=== PATIENT | female | born 1950 | race Caucasian/White ===

== ENCOUNTER 2022-01-18 14:25 | Outpatient (CLI) | payer MEDICARE, SELFPAY | END 2022-01-18 14:26 | disposition home or self-care (01) | LOC: LKVREF 01-21 14:12 | PROVIDERS: PCP Emergency Medicine; Visit Provider Emergency Medicine | DX: Z00.00 Encounter for general adult medical examination without abnormal findings (principal); E03.9 Hypothyroidism, unspecified; R03.0 Elevated blood-pressure reading, without diagnosis of hypertension; R73.03 Prediabetes; E11.9 Type 2 diabetes mellitus without complications; E87.6 Hypokalemia | CPT/HCPCS: 80048; 84443 ==

== ENCOUNTER 2022-05-19 12:06 | Emergency (ER) | payer MEDICARE, SELFPAY ==
[2022-05-19 12:19] VITALS: BP 149/71; PULSE 88; TEMP 36.4; O2SAT 98; BMI 28.3
--- NOTE | 2022-05-19 12:55 | ED_ITS ---
HPI - Back Pain/Injury General Chief Complaint: Back Injury/Pain Stated Complaint: Low back pain Time Seen by Provider: 05/19/22 12:27 History of Present Illness HPI Narrative: This 71-year-old female comes in reporting low back pain radiating down both legs, right greater than left. She does not report any specific injury event but states that she has had some discomfort over the past week or so and today things became much more pronounced. 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 Related Data Home Medications Medication Instructions Recorded Confirmed Filiberto seed PO 01/15/22 Diabetic Test Strips 01/15/22 01/15/22 diabetic supplies, miscellan. 01/15/22 01/15/22 lipase 9,000 unit-protease 112,500 1 cap PO DAILY 01/15/22 01/15/22 unit-amylase 112,500 unit capsule Previous Rx's Medication Instructions Recorded levothyroxine 100 mcg tablet 100 mcg PO QDAY #90 tabs 03/05/22 cyclobenzaprine 10 mg tablet 10 mg PO TID #15 tabs 05/19/22 methylprednisolone 4 mg tablets in See Rx Instructions PO .COMPLEX 05/19/22 a dose pack (Medrol (David)) #21 ea Allergies Allergy/AdvReac Type Severity Reaction Status Date / Time metronidazole [From Flagyl] Allergy Unknown Verified 01/15/22 12:49 Review of Systems Status of ROS: Reports: 10 or more systems reviewed and unremarkable except as noted in History and below Narrative: Constitutional: No fevers, no weight gain or loss. Eyes: No discharge. No vision changes. HENT: No congestion, no sore throat, no ear pain. Cardiovascular: No chest pain, no palpitations. Respiratory: No shortness of breath, no wheezes, no cough. Gastrointestinal: No abdominal pain, no vomiting, no diarrhea. Genitourinary: No dysuria, no hematuria. Musculoskeletal: Normal range of motion. Low back pain radiating down both legs, right greater than left. Skin: No rashes, no pruritis. Neurological: No dizziness, weakness, sensory change, speech change. Endo/Heme/Allergies: No bruising or bleeding. No polydipsia. Pysch: no suicidality, no anxiety, no insomnia. All other systems reviewed and are negative. [facility] Medical History (Updated 05/19/22 @ 12:59 by Chavez Hickey MD) Elevated blood pressure reading ?R03.0 - Elevated blood-pressure reading, without diagnosis of hypertension (ICD-10) History of bone density study ?Z92.89 - Personal history of other medical treatment (ICD-10) Hypothyroidism ?E03.9 - Hypothyroidism, unspecified (ICD-10) Pre-diabetes ?R73.03 - Prediabetes (ICD-10) Vaccine counseling ?Z71.85 - Encounter for immunization safety counseling (ICD-10) Surgical History (Updated 01/15/22 @ 13:02 by Marisol Sotelo MD) History of breast biopsy (09/01/09) ?Z98.890 - Other specified postprocedural states (ICD-10) History of carpal tunnel surgery ?Z98.890 - Other specified postprocedural states (ICD-10) History of laparoscopy (06/07/08) ?Z98.890 - Other specified postprocedural states (ICD-10) Family History (Updated 01/14/22 @ 09:32 by Nancy De La O ~ PSR) Mother Coronary artery disease Social History Smoking Status: Never smoker How often do you have a drink containing alcohol: 2-3 times a week How often do you have six or more drinks on one occasion: Never AUDIT-C Alcohol total score: 3 Non-prescribed substance use: denies use Little interest or pleasure in doing things: several days Feeling down, depressed, or hopeless: not at all Exam Narrative: Exam Narrative: Constitutional: Well-developed, well-nourished, no acute distress. HEENT: Normocephalic, atraumatic. Neck: Normal range of motion. Nontender. Supple. Heart: Regular. No murmurs. Normal rate. Intact distal pulses. Lungs: Clear to auscultation. No chest discomfort. No wheezes, rhonchi, or rales. Abdomen: Normal bowel sounds. Nontender. No rebound tenderness. Genitalia: Deferred. Back: No midline tenderness. Low back pain along the right of midline with pain radiating down both legs, right greater than left. Extremities: Normal range of motion. No injury. Skin: Intact. No rash. Warm. No erythema or pallor. Neurologic: No altered sensation. No weakness. Alert and oriented. Straight leg raise of the left leg is positive eliciting pain in the right lower back. I did not assess the right leg. Psychiatric: No suicidality. No anxiety or depression. No insomnia. Nursing notes and vitals signs are reviewed. Const: Vital Signs, click to edit/add: Vital Signs - 24 hr 05/19/22 12:19 Temperature 97.6 F Pulse Rate [Pulse Oximeter] 88 Blood Pressure [Le ft Upper Arm] 149/71 H Pulse Oximetry 98 Oxygen Delivery Me thod Room Air Course Vital Signs Vital signs: Initial Vital Signs Temperature 97.6 F 05/19/22 12:19 Temperature Source Temporal Artery Scan 05/19/22 12:19 Pulse Rate 88 05/19/22 12:19 Blood Pressure 149/71 H 05/19/22 12:19 Blood Pressure Mean 97 05/19/22 12:19 Blood Pressure Position Standing 05/19/22 12:19 Pulse Oximetry 98 05/19/22 12:19 Oxygen Delivery Method Room Air 05/19/22 12:19 Vital Signs Temperature 97.6 F 05/19/22 12:19 Pulse Rate 88 05/19/22 12:19 Blood Pressure 149/71 H 05/19/22 12:19 Pulse Oximetry 98 05/19/22 12:19 Oxygen Delivery Method Room Air 05/19/22 12:19 Temperature 97.6 F 05/19/22 12:19 Pulse Rate 88 05/19/22 12:19 Blood Pressure 149/71 H 05/19/22 12:19 Pulse Oximetry 98 05/19/22 12:19 Oxygen Delivery Method Room Air 05/19/22 12:19 MDM - Back Pain/Injury MDM Narrative Medical decision making narrative: This patient has symptoms typical of a lumbar radiculopathy. There was no specific injury event that mandates imaging at this time. If not improve she may need an MRI. She prefers to take Tylenol and ibuprofen for pain relief but agreed to get a prescription of Flexeril and Medrol Dosepak. I did also recommend that she follow up with our spine clinic or return if worsening symptoms happen. Discharge Plan Discharge Clinical Impression: Lumbar radiculopathy Patient Disposition: Home, Self-Care Condition: Unchanged Additional Instructions: Take medications as needed and indicated. Activity as tolerated. Follow up with Spine Clinic by calling [phone] for appointment. Return if worsening. Prescriptions: New cyclobenzaprine 10 mg tablet 10 mg PO TID Qty: 15 0RF methylprednisolone [Medrol (David)] 4 mg tablets,dose pack See Rx Instructions .ROUTE .COMPLEX Qty: 21 0RF Rx Instructions: orally per package directions No Action Filiberto seed PO Rx Instructions: 1 tablespoon kfkywa-jtdyjkje-cdxeeev 9,000-112,500- 112,500 unit capsule 1 cap PO DAILY (DME) Diabetic Test Strips Misc See Rx Instructions .ROUTE Rx Instructions: As directed (DME) diabetic supplies, miscellan. Misc See Rx Instructions .ROUTE Rx Instructions: As directed levothyroxine 100 mcg tablet 100 mcg PO QDAY Qty: 90 2RF Follow Up/Referrals: Marisol Sotelo MD [Primary Care Provider] - Stand Alone [facility]
[2022-05-19 13:17] VITALS: BP 132/81; PULSE 76; O2SAT 97
== END 2022-05-19 13:18 | disposition home or self-care (01) ==
PROVIDERS: Emergency Provider Emergency Medicine Emergency Medical Services; PCP Emergency Medicine
DX: M54.16 Radiculopathy, lumbar region (principal)
CPT/HCPCS: 99283; 99284

== ENCOUNTER 2023-02-10 11:44 | Outpatient (CLI) | payer MEDICARE, SELFPAY ==
--- NOTE | 2023-02-10 13:07 | P.ANES_ITS ---
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
== END 2023-02-10 11:45 | disposition home or self-care (01) ==
PROVIDERS: PCP Emergency Medicine; Visit Provider Internal Medicine
DX: Z86.010 Personal history of colon polyps (principal); K57.30 Diverticulosis of large intestine without perforation or abscess without bleeding
CPT/HCPCS: 00812; 45378; 99100; J2704

== ENCOUNTER 2023-06-13 10:45 | Outpatient (RCR) | payer MEDICARE, SELFPAY ==
--- NOTE | 2023-05-19 13:43 | PT.OPE ---
PT [place] Out[facility] Eval PT [facility] Outpatient Eval Start: 05/15/23 15:15 Freq: Status: Active Protocol: Document 05/15/23 15:15 SIMONE (Rec: 05/15/23 15:18 SIMONE [email or web address]) E-signed By Martin Billingsley DPT, MS Physical Therapy Outpatient Evaluation Insurance Information Recert Due Date 08/13/23 Insurance Name Medicare B,Blue Cross/Blue Shield Medical Diagnosis Dorsalgia, unspecified; sacrococcygeal disorders, not elsewhere classified. Treating Diagnosis Chronic B LS and coccyx pain, decreased B (R>L) LE and LS flexibility, gait dysfunction, imbalance, and B LE and core weakness Subjective Subjective Patient is 72 y.o. female who presents to PT with c/o chronic B (R>L) LS and coccyx pain since falling on ice onto her buttocks in April 2022 while filling birdfeeders. Describes soreness immediately following her fall but sxs increased overnight. Increased tightness and soreness this winter with decreased activity levels but pain levels have improved over the past few weeks with increased walking. Denies B radicular sxs with no previous hx of LS pain prior to her fall. Hopes to decrease pain levels to continue performing all daily activities and gardening in the spring. PMH includes DM-II . AGGR factor: lifting and carrying objects, driving, extended sitting, extended walking. ALLEV factors: rest, heating pad, movement, walking <2-3 min. Pain Comments 0-5/10 Current Work Status Retired Precautions Therapy Limitations/Systems Review Not Limited Objective Functional Test Performed & Score Modified OSWESTRY: 50% Assessment Assessment/Impression Objectively pt displays decreased B (R>L) LE and LS flexibility, gait dysfunction, deconditioning, imbalance, and B (L>R) LE and core weakness. Negative B slump testing. Significant R piriformis, glute and LS tightness with significant improvement following stretching and recumbent biking. Sacral mobility improved following joint mobs and MT. She responded well to trial of recumbent biking, MT, stretching and strengthening exercises with decreased LS and coccyx pain and improved quality of gait following. She will benefit from continued skilled PT intervention to address these limitations. Primary Functional Limitations Lifting and carrying objects, driving, extended sitting, extended walking Plan of Care Rehabilitation Potential Excellent Physical Therapy Goals Short-term goals to be completed in 4 weeks: 1. Pt will be able to sit for >15 min with LSand coccyx pain </= 2/10 to improve alejandro to driving. 2. Pt will be able to stand for >10 min with LS pain <3/10 to improve alejandro to grocery shopping. Long-term goals to be completed in 10 weeks: 1. 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 2. Pt will display >25% improvement in B LS rot AROM to safely back up his car. 3. Pt will display improved abdominal, B hip flex , ABD and ext strength >4/5 to improve tolerance to walking, yardwork and household cleaning activities. 4. Pt will report >50% improvement in modified OSWESTRY questionnaire to significantly improve alejandro to daily activities. Coordination/Communication With Referral Source Treatment Plan/Direct Interventions Joint Mobilization,Manual Therapy,Therapeutic Exercises Frequency/Duration 1x per week for least 6-10 visits, decreasing visit frequency as able. Patient Will Be Discharged From Therapy Completion of LTG(s),Skills Plateau,Independent w/HEP, Independently Progressing Evaluation Billing Untimed Code Treatment Minutes 25 Complexity Moderate Certification Information Initial Certification Date 05/15/23 Ending Certification Date 08/13/23 Provider Signature Shows Agreement With POC & Medical Necessity Physician Signature & Date Requested Please Sign/Date Here Physician Comment/Change : Physician NPI Number #
== END 2023-10-11 23:59 | disposition home or self-care (01) ==
PROVIDERS: PCP Emergency Medicine; Visit Provider Emergency Medicine
DX: M53.3 Sacrococcygeal disorders, not elsewhere classified (principal); M54.9 Dorsalgia, unspecified; R42 Dizziness and giddiness; R29.898 Other symptoms and signs involving the musculoskeletal system; R26.89 Other abnormalities of gait and mobility; Z51.89 Encounter for other specified aftercare
CPT/HCPCS: 97110; 97140; 97162

== ENCOUNTER 2023-09-16 09:57 | Outpatient (CLI) | payer MEDICARE, SELFPAY | END 2023-09-16 09:58 | disposition home or self-care (01) | PROVIDERS: PCP Emergency Medicine; Visit Provider Family Medicine | DX: E03.9 Hypothyroidism, unspecified (principal); R03.0 Elevated blood-pressure reading, without diagnosis of hypertension | CPT/HCPCS: 80048; 84443 ==

== ENCOUNTER 2023-09-30 12:24 | Outpatient (CLI) | payer MEDICARE, SELFPAY | END 2023-09-30 12:25 | disposition home or self-care (01) | LOC: LKVREF 12:24 | PROVIDERS: PCP Emergency Medicine; Visit Provider Emergency Medicine | DX: R42 Dizziness and giddiness (principal) | CPT/HCPCS: 80076 ==

== ENCOUNTER 2023-10-05 18:19 | Emergency (ER) | payer MEDICARE, SELFPAY ==
[2023-10-05 18:38] VITALS: BP 150/73; PULSE 80; RESP 16; TEMP 36.2; O2SAT 99; BMI 25.7
[2023-10-05 18:43] VITALS: RESP 18; O2SAT 99
--- NOTE | 2023-10-05 19:28 | ED_ITS ---
HPI - General Adult General Chief complaint: Unspecified Complaint, Adult Stated complaint: high blood pressure Time Seen by Provider: 10/05/23 19:17 Source: patient Mode of arrival: ambulatory Limitations: no limitations History of Present Illness HPI narrative: 73-year-old female coming in today concerned about elevated blood pressures. Patient takes metoprolol which she recently decreased in half and lisinopril. Her blood pressure increased on Friday and was elevated yesterday and today. She is checking her blood pressure multiple times, up to 6 times per day. Patient has chronic dizziness for which she is currently seeing physical therapist for. This has not changed. She has discomfort across her upper back and shoulders, this is also not new. Patient states that she uses a heating pad on her upper back which does help. Patient has no new vision changes, ringing in her ears, chest pain, abdominal discomfort. No changes in her appetite. No focal neurologic deficits. Related Data Home Medications ?Medication ?Instructions ?Recorded ?Confirmed Filiberto seed PO 01/15/22 09/30/23 diabetic supplies, miscellan. 01/15/22 09/30/23 lipase 9,000 unit-protease 112,500 1 cap PO DAILY 01/15/22 09/30/23 unit-amylase 112,500 unit capsule lisinopril 10 mg tablet 10 mg PO DAILY 09/26/23 10/05/23 metoprolol succinate 25 mg 12.5 mg PO QDAY 09/30/23 10/05/23 tablet,extended release 24 hr (Toprol XL) Previous Rx's ?Medication ?Instructions ?Recorded blood sugar diagnostic (Contour #100 ea 02/03/23 Next Test Strips) triamcinolone acetonide 0.1 % 1 applic topical BID #15 grams 07/03/23 topical cream levothyroxine 100 mcg tablet 100 mcg PO QDAY #90 tabs 09/18/23 Allergies Allergy/AdvReac Type Severity Reaction Status Date / Time metronidazole [From Flagyl] Allergy Unknown Verified 09/30/23 11:49 Review of Systems Status of ROS: Reports: 10 or more systems reviewed and unremarkable except as noted in History and below [facility] Medical History Dizziness ?R42 - Dizziness and giddiness (ICD-10) Type 2 diabetes mellitus (07/21/10) ?E11.9 - Type 2 diabetes mellitus without complications (ICD-10) Hypertension ?I10 - Essential (primary) hypertension (ICD-10) Tick bite ?W57.XXXA - Bitten or stung by nonvenomous insect and other nonvenomous arthropods, initial encounter (ICD-10) Malaise ?R53.81 - Other malaise (ICD-10) Coccyx pain ?M53.3 - Sacrococcygeal disorders, not elsewhere classified (ICD-10) Back pain ?M54.9 - Dorsalgia, unspecified (ICD-10) Vomiting ?R11.10 - Vomiting, unspecified (ICD-10) Collagenous colitis ?K52.831 - Collagenous colitis (ICD-10) Sessile serrated polyp of colon ?D12.6 - Benign neoplasm of colon, unspecified (ICD-10) Vaccine counseling ?Z71.85 - Encounter for immunization safety counseling (ICD-10) Pre-diabetes ?R73.03 - Prediabetes (ICD-10) Elevated blood pressure reading ?R03.0 - Elevated blood-pressure reading, without diagnosis of hypertension (ICD-10) History of bone density study ?Z92.89 - Personal history of other medical treatment (ICD-10) Hypothyroidism ?E03.9 - Hypothyroidism, unspecified (ICD-10) Surgical History History of laparoscopy (06/07/08) ?Z98.890 - Other specified postprocedural states (ICD-10) History of carpal tunnel surgery ?Z98.890 - Other specified postprocedural states (ICD-10) History of breast biopsy (09/01/09) ?Z98.890 - Other specified postprocedural states (ICD-10) Family History Mother Coronary artery disease Social History Smoking Status: Never smoker How often do you have a drink containing alcohol: 2-3 times a week How often do you have six or more drinks on one occasion: Never AUDIT-C Alcohol total score: 3 Non-prescribed substance use: denies use Little interest or pleasure in doing things: not at all Feeling down, depressed, or hopeless: not at all Exam Narrative: Exam Narrative: Well-nourished well-developed patient in no acute distress. Alert and oriented. Answers questions appropriately. Mood and affect are appropriate. Thoughts are goal oriented and rational. No tangential or magical thinking noted. Patient speaks in full sentences without needing to catch her breath. No facial asymmetry. Speech is not slurred or pressured. No word-finding difficulty. HEENT: Normocephalic atraumatic. Pupils are equally round reactive to light. Extraocular muscles are intact. Conjunctivae are moist without any icterus noted. Moist mucous membranes. Neck is soft. Cardiovascular: Heart is regular rate and rhythm S1 and S2 are present without any murmurs. Lungs: Clear to auscultation bilaterally no wheezes rhonchi or rales are appreciated. Patient takes deep breaths without any discomfort. Skin: Well perfused. Strength is 5/5 of the upper and lower extremities. Reflexes are 2+ and symmetric at the knees. Cranial nerves 3-12 are normal. There is no nystagmus either horizontally or vertically. Gait is normal. Bilateral trapezius is quite firm, tight. Const: Vital Signs, click to edit/add: Vital Signs - 24 hr 10/05/23 18:38 Temperature 97.1 F L Pulse Rate [Pulse Oximeter] 80 Respiratory Rate 16 Blood Pressure [Le ft Upper Arm] 150/73 H Pulse Oximetry 99 Oxygen Delivery Me thod Room Air Course Vital Signs Vital signs: Initial Vital Signs Temperature 97.1 F L 10/05/23 18:38 Temperature Source Temporal Artery Scan 10/05/23 18:38 Pulse Rate 80 10/05/23 18:38 Respiratory Rate 16 10/05/23 18:38 Blood Pressure 150/73 H 10/05/23 18:38 Blood Pressure Mean 98 10/05/23 18:38 Pulse Oximetry 99 10/05/23 18:38 Oxygen Delivery Method Room Air 10/05/23 18:38 Vital Signs Temperature 97.1 F L 10/05/23 18:38 Pulse Rate 80 10/05/23 18:38 Respiratory Rate 16 10/05/23 18:38 Blood Pressure 150/73 H 10/05/23 18:38 Pulse Oximetry 99 10/05/23 18:38 Oxygen Delivery Method Room Air 10/05/23 18:38 Temperature 97.1 F L 10/05/23 18:38 Pulse Rate 80 10/05/23 18:38 Respiratory Rate 16 10/05/23 18:38 Blood Pressure 150/73 H 10/05/23 18:38 Pulse Oximetry 99 10/05/23 18:38 Oxygen Delivery Method Room Air 10/05/23 18:38 Medical Decision Making MDM Narrative Medical decision making narrative: 73-year-old female with elevated blood pressures. We discussed that she should decrease the amount of time she is taking her blood pressures. We discussed managing anxiety and stress. We discussed continue physical therapy and following up with her primary care provider. Do not recommend any medication changes at this time. Discharge Plan Discharge Clinical Impression: Elevated blood pressure reading Patient Disposition: Home, Self-Care Condition: Stable Additional Instructions: Decrease the amount of time to check her blood pressure per day. Can go down to once a day or once every other day. Continue PTS scheduled. Follow-up with your primary care provider per their recommendation. Prescriptions: No Action Filiberto seed PO Rx Instructions: 1 tablespoon qigghv-mpudrbuk-uwqonzy 9,000-112,500- 112,500 unit capsule 1 cap PO DAILY (DME) diabetic supplies, miscellan. Misc See Rx Instructions .Route Rx Instructions: As directed levothyroxine 100 mcg tablet 100 mcg PO QDAY Qty: 90 3RF metoprolol succinate [Toprol XL] 25 mg tablet extended release 24 hr 12.5 mg PO QDAY Patient Comments: dose change lisinopril 10 mg tablet 10 mg PO DAILY triamcinolone acetonide 0.1 % cream 1 applic topical BID Qty: 15 0RF (DME) Contour Next Test Strips Strip See Rx Instructions .ROUTE .COMPLEX Qty: 100 0RF Dose Instruction: TEST ONCE DAILY NEEDED Rx Instructions: TEST ONCE DAILY NEEDED Follow Up/Referrals: Marisol oStelo MD [Primary Care Provider] - Stand Alone Forms: [employer] Info Instructions
[2023-10-05 19:38] VITALS: BP 145/70; PULSE 74; RESP 16; TEMP 36.7; O2SAT 99
[2023-10-05 19:39] VITALS: BP 145/70; PULSE 74; RESP 16; TEMP 36.7
== END 2023-10-05 19:39 | disposition home or self-care (01) ==
LOC: ED 19:31
PROVIDERS: Emergency Provider Family Medicine; PCP Emergency Medicine
DX: R03.0 Elevated blood-pressure reading, without diagnosis of hypertension (principal)
CPT/HCPCS: 99282; 99283

== ENCOUNTER 2023-10-16 08:30 | Outpatient (CLI) | payer MEDICARE, SELFPAY | END 2023-10-16 08:31 | disposition home or self-care (01) | LOC: NFLDREF 10-18 18:44 | PROVIDERS: PCP Emergency Medicine; Referring Provider Emergency Medicine; Visit Provider Emergency Medicine | DX: I10 Essential (primary) hypertension (principal); R73.03 Prediabetes; E03.9 Hypothyroidism, unspecified; E87.6 Hypokalemia | CPT/HCPCS: 80053; 80061 ==

== ENCOUNTER 2023-10-16 14:45 | Outpatient (RCR) | payer MEDICARE, SELFPAY ==
--- NOTE | 2023-10-03 13:26 | PT.OPE ---
PT [place] [facility] Out[facility] Eval PT [facility] Out[facility] Eval Start: 10/02/23 14:50 Freq: Status: Active Protocol: Document 10/02/23 18:00 BMS (Rec: 10/03/23 13:25 BMS [id number]) E-signed By Karen Garcia PT Physical Therapy Outpatient Evaluation Insurance Information Recert Due Date 12/30/23 Insurance Information/Comments medicare advantage plans Provider Fax Number internal Medical Diagnosis vertigo, R 42 dizziness and giddiness Treating Diagnosis unsteadiness on feet R 26.81 BPPV H81.13 Referring MD Marisol Sotelo MD Subjective Subjective Patient reports symptoms starting in August, was ok on August 27 at brother's for gathering. Went ot the hospital with dizziness on found really high blood pressure. Have been to ED x 2 and urgent care and reg appt x 3. was told have water in ears and HTN, started amoxicillin, watching blood pressure has been in the 103s- 140s. I decreased to 12.5 mg metropolol, hospital added 10 mg. am ok at computer if sitting still, can walk fairly straight but can't turn to sides or bend forward without getting dizzy dale quickly. drove me today. Am prediabetic , had cataract surgery. intermittent tinnitus , and chronic neck pain and recurrent headaches. Had vertigo attack in 2020.this is not as severe as that, have had nausea but no vomit, am due for eye exam. Pain Comments neck tight and sore. headaches from this Current Work Status Retired Precautions Treatment Precautions/Contraindications prediabetes, hx lumbar and sciatica Objective Range of Motion cervcial flex and ext B rotation WFL. B SB limited to ~ 25% expected with tightness and pain in neck Strength R hip flex and abduct 4/5, other LE and B UE 5/5. Palpation hypertonic B cervical stabilizers, including scalenes, cervical paraspinals , UT and levator. did not assess vertebral mobility this date. Balance & Gait slowed gait with head held still, wall touch x 2 in 30' from lobby to room. Other/Pertinent Objective + R kavon with upward torsional nystagmus x 3-5 slow beats +L horizontal canalithiasis + VOR cancellation, negative VOR Functional Test Performed & Score Dizziness Handicap Inventory Summary P1. Does looking up increase your problem? Looking up sometimes increases problem (2 points) E2. Because of your problem, do you feel frustrated? Always feel frustrated because of problem (4 points) F3. Because of your problem, do you restrict your travel for business or pleasure? Dizziness always restricts travel (4 points) P4. Does walking down the aisle of a supermarket increase your problem? Walking in the aisle of a supermarket sometimes increases problem (2 points) F5. Because of your problem, do you have difficulty getting into or out of bed? Never have difficulty getting into or out of bed due to problem (0 points) F6. Does your problem significantly restrict your participation in social activities? Dizziness always restricts participation in social activities (4 points) F7. Because of your problem, do you have difficulty reading ? Dizziness always causes difficulty reading (4 points) F8. Does performing more ambitious activities increase your problem? Performing more ambitious always increases problem (4 points) E9. Are you afraid to leave your home without having someone accompany you? Because of problem, always afraid to leave your home without having someone accompany you (4 points) E10. Because of your problem, have you been embarrassed in front of others? Never embarrassed in front of others because of problem (0 points) P11. Do quick movements of your head increase your problem? Quick movements of head always increase problem (4 points) F12. Because of your problem, do you avoid heights? Always avoid heights because of problem (4 points) P13. Does turning over in bed increase your problem? Turning over in bed never increases problem (0 points) F14. Is it difficult for you to do strenuous housework or yard work? It is always difficult to do strenuous housework or yard work (4 points) E15. Are you afraid people may think that you are intoxicated? Never afraid people may think that you are intoxicated (0 points) F16. Because of your problem, is it difficult for you to go for a walk by yourself? It is sometimes difficult to go for a walk by yourself (2 points) The tools listed on this website do not substitute for the informed opinion of a licensed physician or other health care provider. All scores should be re- checked. Please see our full Terms of Use. P17. Does walking down a sidewalk increase your problem ? Walking down a sidewalk sometimes increases problem (2 points) E18. Because of your problem, is it difficult for you to concentrate? It is always difficult to concentrate (4 points) F19. Is it difficult for you to walk around your house in the dark? It is always difficult to walk around house in the dark (4 points) E20. Because of your problem, are you afraid to stay home alone? Never afraid to stay home alone (0 points) E21. Because of your problem, do you feel handicapped? Sometimes feel handicapped (2 points) E22. Has your problem placed stress on your relationship with family/friends? Problem sometimes places stress on relationships with family or friends (2 points) E23. Because of your problem, are you depressed? Sometimes depressed because of problem (2 points) F24. Does your problem interfere with your job or household responsibilities? Problem always interferes with job or household responsibilities (4 points) P25. Does bending over increase your problem? Bending over always increases problem (4 points) DHI Score: 66/100 Graphical DHI Score: Physical Score: 1428 Emotional Score: 18/36 Functional Score: 34/36 Assessment Assessment/Impression Patient presents today with positional vertigo R posterior canalithiasis and L horizontal canalithiasis. Hx of vertigo attack in 2020, symptoms today have imrpoved over onset in August 2023. Patient reports sudden onset of feeling off and initially spinning sensation a few weeks ago, states she has been to ED x 2 and clinic x3. Was told at one point she has water behind her ears and prescribed antibiotic that has given little relief. At ED was told BP very high home and blood pressure meds adjusted x 2. She is prediabetic and monitoring this. She presents with + Kavon Hallpike right and Left horizontal canalithiasis, would benefit from skilled physical therapy to improve symptoms, gait and blaPatient reports symptoms starting in August, was ok on August 27 at brother's for gathering. Went ot the hospital with dizziness on 09/17/23 found really high blood pressure. Have been to ED x 2 and urgent care and reg appt x 3. was told have water in ears and HTN, started amoxicillin, watching blood pressure has been in the 103s- 140s. I decreased to 12.5 mg metropolol, hospital added 10 mg. am ok at computer if sitting still, can walk fairly straight but can't turn to sides or bend forward without getting dizzy dale quickly. drove me today. Am prediabetic , had cataract surgery. intermittent tinnitus , and chronic neck pain and recurrent headaches. Had vertigo attack in 2020.this is not as severe as that, have had nausea but no vomit, am due for eye exam. nce to reduce fall risk. Primary Functional Limitations bending forward, rapid turns, driving Plan of Care Rehabilitation Potential Good Rehabilitation Potential Comments potentially multifactoral, does have bppv but also cervical maybe contributing Physical Therapy Goals 1) Pt demo I HEP and self care/home mgmt techniques for dizziness adaptation, safety measures, and home safety improvements including picking up throw rugs, night light or commode, and use of gait aid as appropriate. 2) Pt report dizziness limiting activities < 2 episodes in 1 week period. 1)Pt demo ability to roll over in bed without vertigo. 2) Pt demo ability to pass balance testing (SLS, DGI, Fukuda etc) out of high fall risk. 3) Pt demo appropriate gait pattern with no evidence of lack of balance. Coordination/Communication With Referral Source Treatment Plan/Direct Interventions Canalith Repositioning,Gait Training,Manual Therapy, Neuromuscular Re-ed,Self-Care/ Home Management,Therapeutic Activities,Therapeutic Exercises Frequency/Duration up to 6 visits 1-2x/ week as symptoms warrant Patient Will Be Discharged From Therapy Completion of LTG(s),Skills Plateau,Independent w/HEP, Independently Progressing Evaluation Billing Untimed Code Treatment Minutes 30 Complexity Low Certification Information Initial Certification Date 10/02/23 Ending Certification Date 12/30/23 Provider Signature Required Yes Provider Signature Shows Agreement With POC & Medical Necessity Physician NPI Number Write NPI# Here Physician Comment/Change : Physician Signature & Date Requested Please Sign/Date Here
== END 2024-02-13 23:59 | disposition home or self-care (01) ==
PROVIDERS: PCP Emergency Medicine; Visit Provider Emergency Medicine
DX: H81.13 Benign paroxysmal vertigo, bilateral (principal); R26.81 Unsteadiness on feet; Z51.89 Encounter for other specified aftercare
CPT/HCPCS: 97112; 97140; 97161; 97530

== ENCOUNTER 2023-11-06 16:13 | Emergency (ER) | payer MEDICARE, SELFPAY ==
[2023-11-06 16:22] VITALS: BP 163/82; PULSE 98; RESP 18; TEMP 37.6; O2SAT 99; BMI 26.6
--- NOTE | 2023-11-06 18:23 | ED.GENADULT ---
HPI - General Adult General Time Seen by Provider: 18:23 Date Seen: 11/06/23 Chief complaint: Hypertension Stated complaint: blood pressure issue Time Seen by Provider: 11/06/23 18:22 Source: patient, RN notes reviewed and old records reviewed Mode of arrival: ambulatory Limitations: no limitations History of Present Illness HPI narrative: 73-year-old female with history of hypertension who presents today with elevated blood pressure. Patient says this is been going on for the last 6 weeks, notes that she has some dizziness with this. Went to physical therapy for dizziness and was feeling better at the beginning of the week but then noted little more dizziness yesterday and checked her blood pressure yesterday with high systolic in the 150s, recheck today with similar readings and so came to the emergency department. Denies head pain, chest pain, shortness of breath, numbness or tingling the arms or legs, weakness. Reports taking her lisinopril as prescribed. Related Data Home Medications ?Medication ?Instructions ?Recorded ?Confirmed Filiberto seed PO 01/15/22 10/21/23 diabetic supplies, miscellan. 01/15/22 10/21/23 lipase 9,000 unit-protease 112,500 1 cap PO DAILY 01/15/22 10/21/23 unit-amylase 112,500 unit capsule Previous Rx's ?Medication ?Instructions ?Recorded triamcinolone acetonide 0.1 % 1 applic topical BID #15 grams 07/03/23 topical cream levothyroxine 100 mcg tablet 100 mcg PO QDAY #90 tabs 09/18/23 blood sugar diagnostic (Contour #100 ea 10/15/23 Next Test Strips) lisinopril 10 mg tablet 10 mg PO DAILY #90 tabs 10/18/23 Allergies Allergy/AdvReac Type Severity Reaction Status Date / Time metronidazole [From Flagyl] Allergy Unknown Verified 10/21/23 15:02 [facility] Medical History (Updated 11/06/23 @ 18:41 by Ren Ortiz MD) Vision abnormalities ?H53.9 - Unspecified visual disturbance (ICD-10) Dizziness ?R42 - Dizziness and giddiness (ICD-10) Type 2 diabetes mellitus (09/13/09) ?E11.9 - Type 2 diabetes mellitus without complications (ICD-10) Hypertension ?I10 - Essential (primary) hypertension (ICD-10) Tick bite ?W57.XXXA - Bitten or stung by nonvenomous insect and other nonvenomous arthropods, initial encounter (ICD-10) Malaise ?R53.81 - Other malaise (ICD-10) Coccyx pain ?M53.3 - Sacrococcygeal disorders, not elsewhere classified (ICD-10) Back pain ?M54.9 - Dorsalgia, unspecified (ICD-10) Vomiting ?R11.10 - Vomiting, unspecified (ICD-10) Collagenous colitis ?K52.831 - Collagenous colitis (ICD-10) Sessile serrated polyp of colon ?D12.6 - Benign neoplasm of colon, unspecified (ICD-10) Vaccine counseling ?Z71.85 - Encounter for immunization safety counseling (ICD-10) Pre-diabetes ?R73.03 - Prediabetes (ICD-10) Elevated blood pressure reading ?R03.0 - Elevated blood-pressure reading, without diagnosis of hypertension (ICD-10) History of bone density study ?Z92.89 - Personal history of other medical treatment (ICD-10) Hypothyroidism ?E03.9 - Hypothyroidism, unspecified (ICD-10) Surgical History History of laparoscopy (06/07/08) ?Z98.890 - Other specified postprocedural states (ICD-10) History of carpal tunnel surgery ?Z98.890 - Other specified postprocedural states (ICD-10) History of breast biopsy (09/01/09) ?Z98.890 - Other specified postprocedural states (ICD-10) Family History Mother Coronary artery disease Social History (Updated 10/21/23 @ 16:21 by Marisol Sotelo MD) Narrative: , no children, enjoys gardening, riding stationary bicycle, no tobacco products, rare alcohol. Smoking Status: Never smoker Second hand tobacco smoke exposure: No How often do you have a drink containing alcohol: 2-3 times a week How often do you have six or more drinks on one occasion: Never AUDIT-C Alcohol total score: 3 Non-prescribed substance use: denies use Little interest or pleasure in doing things: not at all Feeling down, depressed, or hopeless: not at all Exam Narrative: Exam Narrative: General: Well-developed and well-nourished, no acute distress Head: Atraumatic and normocephalic Eyes: Pupils are equal reactive, extraocular motions intact, conjunctiva clear ENT: External nose and ears are normal, posterior pharynx without erythema or exudate Neck: No midline cervical tenderness, full spontaneous range of motion the neck, trachea midline, no adenopathy Heart: Regular rate and rhythm no murmurs or thrills Lungs: Clear to auscultation bilaterally without wheezes or crackles Abdomen: Soft, nontender, nondistended with active bowel sounds Musculoskeletal: No tenderness, deformity, or edema Neurologic: Awake, alert, and oriented x3, no gross focal neurologic deficits, cranial nerves intact as tested Psych: Mood and affect are appropriate Skin: No rashes Const: Vital Signs, click to edit/add: Vital Signs - 24 hr 11/06/23 16:22 Temperature 99.7 F H Pulse Rate [Right Pulse Oximeter] 98 Respiratory Rate 18 Blood Pressure [Ri ght Upper Arm] 163/82 H Pulse Oximetry 99 Oxygen Delivery Me thod Room Air Course Course ED Course: Patient seen examined, presents today with a bili of blood pressure. Review of prior chart shows the patient is seen in the emergency department last month for this same complaint and discharged. Patient is here with blood pressure reading systolics in the 160s with diastolic 90. She has some posterior head pressure and some dizziness which she describes as lightheadedness, no room spinning. She denies chest pain, shortness of breath, numbness or tingling the arms or legs, weakness, gait disturbance. We discussed evaluation and treatment of elevated blood pressure in the emergency department. At this point patient has asymptomatic hypertension with only mildly elevated blood pressures, no indication for further evaluation treatment in the emergency department. She will be given a dose of meclizine for her dizziness and discharged Vital Signs Vital signs: Initial Vital Signs Temperature 99.7 F H 11/06/23 16:22 Temperature Source Temporal Artery Scan 11/06/23 16:22 Pulse Rate 98 11/06/23 16:22 Pulse Rhythm Regular 11/06/23 16:22 Pulse Strength 3+ Normal 11/06/23 16:22 Respiratory Rate 18 11/06/23 16:22 Blood Pressure 163/82 H 11/06/23 16:22 Blood Pressure Mean 109 H 11/06/23 16:22 Blood Pressure Position Sitting 11/06/23 16:22 Pulse Oximetry 99 11/06/23 16:22 Oxygen Delivery Method Room Air 11/06/23 16:22 Vital Signs Temperature 99.7 F H 11/06/23 16:22 Pulse Rate 98 11/06/23 16:22 Respiratory Rate 18 11/06/23 16:22 Blood Pressure 163/82 H 11/06/23 16:22 Pulse Oximetry 99 11/06/23 16:22 Oxygen Delivery Method Room Air 11/06/23 16:22 Temperature 99.7 F H 11/06/23 16:22 Pulse Rate 98 11/06/23 16:22 Respiratory Rate 18 11/06/23 16:22 Blood Pressure 163/82 H 11/06/23 16:22 Pulse Oximetry 99 11/06/23 16:22 Oxygen Delivery Method Room Air 11/06/23 16:22 Discharge Plan Discharge Clinical Impression: Elevated blood pressure reading Hypertension Qualifiers: Hypertension type: primary hypertension Qualified Code(s): I10 - Essential (primary) hypertension Patient Disposition: Home, Self-Care Condition: Stable Instructions: Chronic Hypertension (DC) Additional Instructions: Check your blood pressure once a day Continue your current blood pressure medication Follow-up with regular doctor next week Activity Level: Activity as Tolerated Discharge Diet: Regular Prescriptions: No Action Filiberto seed PO Rx Instructions: 1 tablespoon tqgopm-jbiqfoed-zrbgfjj 9,000-112,500- 112,500 unit capsule 1 cap PO DAILY (DME) diabetic supplies, miscellan. Misc See Rx Instructions .Route Rx Instructions: As directed levothyroxine 100 mcg tablet 100 mcg PO QDAY Qty: 90 3RF triamcinolone acetonide 0.1 % cream 1 applic topical BID Qty: 15 0RF (DME) Contour Next Test Strips Strip See Rx Instructions .ROUTE .COMPLEX Qty: 100 0RF Dose Instruction: TEST ONCE DAILY NEEDED Rx Instructions: TEST ONCE DAILY NEEDED lisinopril 10 mg tablet 10 mg PO DAILY Qty: 90 3RF Follow Up/Referrals: Marisol Sotelo MD [Primary Care Provider] - Stand Alone [facility]: [facility]
[2023-11-06] MEDS: MECLIZINE HCL 25 MG TABLET PO (18:53)
== END 2023-11-06 19:00 | disposition home or self-care (01) ==
LOC: ED 18:54
PROVIDERS: Emergency Provider Family Medicine; PCP Emergency Medicine
DX: I10 Essential (primary) hypertension (principal)
CPT/HCPCS: 99283; A9270

== ENCOUNTER 2023-11-19 14:28 | Outpatient (CLI) | payer MEDICARE, SELFPAY ==
--- NOTE | 2023-11-19 14:45 | CRLHL7_ITS ---
For Patients: As a result of the Century Cures Act, medical imaging exams and procedure reports are released immediately into your electronic medical record. You may view this report before your referring provider. If you have questions, please contact your health care provider. INDICATION: Dizziness and giddiness. TECHNIQUE: Brain MRI without contrast. COMPARISON: Head CT from 05/22/2021. FINDINGS: No evidence of acute ischemia. No evidence of acute or chronic intracranial blood products. Scattered FLAIR hyperintensities within the supratentorial white matter and brainstem, typical for chronic microvascular ischemic change. No mass effect or herniation. No hydrocephalus or extra-axial collections. The pituitary gland, parasellar structures and optic chiasm are normal. Posterior fossa is normal. All the major intracranial vascular structures demonstrate normal flow-related signal. The orbital contents are normal. No calvarial or skull base marrow replacing process. No obstructive sinus disease. No extracranial soft tissue findings. IMPRESSION: 1. No acute ischemia or other acute intracranial pathology. 2. Mild chronic microvascular ischemic changes and mild generalized parenchymal volume loss. Dictated by Jorge A Cooper MD @ 11/25/2023 4:07:08 PM (Electronically Signed)
== END 2023-11-19 14:29 | disposition home or self-care (01) ==
LOC: MRI 14:29
PROVIDERS: PCP Emergency Medicine; Visit Provider Emergency Medicine
DX: R42 Dizziness and giddiness (principal); I67.82 Cerebral ischemia
CPT/HCPCS: 70551

== ENCOUNTER 2023-12-27 17:12 | Emergency (ER) | payer MEDICARE, SELFPAY ==
[2023-12-27 17:19] VITALS: BP 163/82; PULSE 90; RESP 16; TEMP 37; O2SAT 97; BMI 25.7
--- NOTE | 2023-12-27 18:20 | ED.GENADULT ---
HPI - General Adult General Chief complaint: Weakness Stated complaint: lightheaded, dizzy, tiredness Time Seen by Provider: 12/27/23 17:20 History of Present Illness HPI narrative: This 73-year-old female comes in with her . She is feeling fatigue and generalized weakness and does feel sometimes off balance. She has been recording her blood pressures and is concerned about recent blood pressure readings in the 150-160 range occurring over the past few days. She has been taking lisinopril 10 mg daily for almost a couple months and now also taking Lexapro 5 mg for about the same amount of time. She does not report any fevers or neurologic deficits. She is not reporting any pain except she does have chronic sciatica symptoms. Related Data Home Medications ?Medication ?Instructions ?Recorded ?Confirmed Filiberto seed PO 01/15/22 11/11/23 diabetic supplies, miscellan. 01/15/22 11/10/23 lipase 9,000 unit-protease 112,500 1 cap PO DAILY 01/15/22 11/11/23 unit-amylase 112,500 unit capsule Previous Rx's ?Medication ?Instructions ?Recorded triamcinolone acetonide 0.1 % 1 applic topical BID #15 grams 07/03/23 topical cream levothyroxine 100 mcg tablet 100 mcg PO QDAY #90 tabs 09/18/23 blood sugar diagnostic (Contour #100 ea 10/15/23 Next Test Strips) lisinopril 10 mg tablet 10 mg PO DAILY #90 tabs 10/18/23 lorazepam 1 mg tablet 1 mg PO QHS PRN anxiety #4 tabs 11/10/23 escitalopram oxalate 5 mg tablet 5 mg PO QDAY #90 tabs 11/11/23 lorazepam 0.5 mg tablet 0.5 mg PO BID PRN anxiety #15 tabs 11/11/23 Allergies Allergy/AdvReac Type Severity Reaction Status Date / Time metronidazole (From Flagyl) Allergy Unknown Verified 12/27/23 17:21 [facility] Medical History Vision abnormalities ?H53.9 - Unspecified visual disturbance (ICD-10) Dizziness ?R42 - Dizziness and giddiness (ICD-10) Type 2 diabetes mellitus (09/13/09) ?E11.9 - Type 2 diabetes mellitus without complications (ICD-10) Hypertension ?I10 - Essential (primary) hypertension (ICD-10) Tick bite ?W57.XXXA - Bitten or stung by nonvenomous insect and other nonvenomous arthropods, initial encounter (ICD-10) Malaise ?R53.81 - Other malaise (ICD-10) Coccyx pain ?M53.3 - Sacrococcygeal disorders, not elsewhere classified (ICD-10) Back pain ?M54.9 - Dorsalgia, unspecified (ICD-10) Vomiting ?R11.10 - Vomiting, unspecified (ICD-10) Collagenous colitis ?K52.831 - Collagenous colitis (ICD-10) Sessile serrated polyp of colon ?D12.6 - Benign neoplasm of colon, unspecified (ICD-10) Vaccine counseling ?Z71.85 - Encounter for immunization safety counseling (ICD-10) Pre-diabetes ?R73.03 - Prediabetes (ICD-10) Elevated blood pressure reading ?R03.0 - Elevated blood-pressure reading, without diagnosis of hypertension (ICD-10) History of bone density study ?Z92.89 - Personal history of other medical treatment (ICD-10) Hypothyroidism ?E03.9 - Hypothyroidism, unspecified (ICD-10) Surgical History History of laparoscopy (06/07/08) ?Z98.890 - Other specified postprocedural states (ICD-10) History of carpal tunnel surgery ?Z98.890 - Other specified postprocedural states (ICD-10) History of breast biopsy (09/01/09) ?Z98.890 - Other specified postprocedural states (ICD-10) Family History Mother Coronary artery disease Social History Narrative: , no children, enjoys gardening, riding stationary bicycle, no tobacco products, rare alcohol. Smoking Status: Never smoker Second hand tobacco smoke exposure: No How often do you have a drink containing alcohol: 2-3 times a week How often do you have six or more drinks on one occasion: Never AUDIT-C Alcohol total score: 3 Non-prescribed substance use: denies use Little interest or pleasure in doing things: not at all Feeling down, depressed, or hopeless: not at all Exam Narrative: Exam Narrative: Constitutional: Well-developed, well-nourished, no acute distress. HEENT: Normocephalic, atraumatic. Neck: Normal range of motion. Nontender. Supple. Heart: Regular. No murmurs. Normal rate. Intact distal pulses. Lungs: Clear to auscultation. No chest discomfort. No wheezes, rhonchi, or rales. Abdomen: Normal bowel sounds. Nontender. No rebound tenderness. Genitalia: Deferred. Back: No midline tenderness. Normal range of motion. Extremities: Normal range of motion. No injury. Skin: Intact. No rash. Warm. No erythema or pallor. Neurologic: No altered sensation. No weakness. Alert and oriented. No facial asymmetry. Tongue is midline. [id number] is normal. No pronator drift. Information Support Project Manager strength is equal bilaterally. Able to raise each leg from the bed. Psychiatric: No suicidality. No anxiety or depression. No insomnia. Nursing notes and vitals signs are reviewed. Const: Vital Signs, click to edit/add: Vital Signs - 24 hr 12/27/23 17:19 Temperature 98.6 F Pulse Rate [Right Pulse Oximeter] 90 Respiratory Rate 16 Blood Pressure [Ri ght Upper Arm] 163/82 H Pulse Oximetry 97 Oxygen Delivery Me thod Room Air Course Vital Signs Vital signs: Initial Vital Signs Temperature 98.6 F 12/27/23 17:19 Temperature Source Temporal Artery Scan 12/27/23 17:19 Pulse Rate 90 12/27/23 17:19 Pulse Rhythm Regular 12/27/23 17:19 Pulse Strength 3+ Normal 12/27/23 17:19 Respiratory Rate 16 12/27/23 17:19 Blood Pressure 163/82 H 12/27/23 17:19 Blood Pressure Mean 109 H 12/27/23 17:19 Blood Pressure Position Sitting 12/27/23 17:19 Pulse Oximetry 97 12/27/23 17:19 Oxygen Delivery Method Room Air 12/27/23 17:19 Vital Signs Temperature 98.6 F 12/27/23 17:19 Pulse Rate 90 12/27/23 17:19 Respiratory Rate 16 12/27/23 17:19 Blood Pressure 163/82 H 12/27/23 17:19 Pulse Oximetry 97 12/27/23 17:19 Oxygen Delivery Method Room Air 12/27/23 17:19 Temperature 98.6 F 12/27/23 17:19 Pulse Rate 90 12/27/23 17:19 Respiratory Rate 16 12/27/23 17:19 Blood Pressure 163/82 H 12/27/23 17:19 Pulse Oximetry 97 12/27/23 17:19 Oxygen Delivery Method Room Air 12/27/23 17:19 Medical Decision Making MDM Narrative Medical decision making narrative: This patient arrives with concerns about her blood pressure. I did review her blood pressure records over the past 3-4 weeks. Most of these are in normal range and in fact a couple were may be a little bit low with systolic value at around 106. Over the past few days her blood pressure has been up to around 150 or 160. She is not showing any neurologic deficits. I did explain matters relating to blood pressure and how it is managed. As for her fatigue this may be related to her Lexapro. She is taking this in the morning. She states that she does not usually sleep so well at night. I recommended taking her medications in the evening as a start to try to unpack why she is feeling more fatigue recently. I did also discuss lab and imaging options which the patient declined in a process of shared decision making. She does have a follow-up appointment with a primary physician in 5 days. She is satisfied and feels okay to return home. Discharge Plan Discharge Clinical Impression: Fatigue Patient Disposition: Home, Self-Care Condition: Stable Additional Instructions: Fatigue and weakness may be related to medications so consider taking these in the evening. Follow-up with primary physician for ongoing management. Return if worsening. Prescriptions: No Action Filiberto seed PO Rx Instructions: 1 tablespoon mtpgej-rwflpjph-ztjbpon 9,000-112,500- 112,500 unit capsule 1 cap PO DAILY (DME) diabetic supplies, miscellan. Misc See Rx Instructions .Route Rx Instructions: As directed levothyroxine 100 mcg tablet 100 mcg PO QDAY Qty: 90 3RF escitalopram oxalate 5 mg tablet 5 mg PO QDAY Qty: 90 0RF lorazepam 0.5 mg tablet 0.5 mg PO BID PRN (Reason: anxiety) Qty: 15 0RF lorazepam 1 mg tablet 1 mg PO QHS PRN (Reason: anxiety) Qty: 4 0RF triamcinolone acetonide 0.1 % cream 1 applic topical BID Qty: 15 0RF (DME) Contour Next Test Strips Strip See Rx Instructions .ROUTE .COMPLEX Qty: 100 0RF Dose Instruction: TEST ONCE DAILY NEEDED Rx Instructions: TEST ONCE DAILY NEEDED lisinopril 10 mg tablet 10 mg PO DAILY Qty: 90 3RF Follow Up/Referrals: Marisol Sotelo MD [Primary Care Provider] - Stand Alone Forms: MyHealth Info Instructions
== END 2023-12-27 18:29 | disposition home or self-care (01) ==
PROVIDERS: Emergency Provider Emergency Medicine Emergency Medical Services; PCP Emergency Medicine
DX: R53.83 Other fatigue (principal)
CPT/HCPCS: 99282; 99283; 99284

== ENCOUNTER 2024-01-13 11:00 | Outpatient (CLI) | payer MEDICARE, SELFPAY ==
--- NOTE | 2024-01-13 11:30 | CRLHL7_ITS ---
For Patients: As a result of the Century Cures Act, medical imaging exams and procedure reports are released immediately into your electronic medical record. You may view this report before your referring provider. If you have questions, please contact your health care provider. BILATERAL SCREENING MAMMOGRAM WITH COMPUTER-AIDED DETECTION AND TOMOSYNTHESIS TECHNIQUE: CC and MLO views were obtained. These mammographic images have been obtained using full-field digital technique. These mammographic images were interpreted with the benefit of computer-aided detection. Breast Tomosynthesis was used in this interpretation. COMPARISON FILM: 03/21/21, 09/23/18, 01/16/09. FINDINGS: There are scattered areas of fibroglandular density. IMPRESSION: There is no radiographic evidence for malignancy. ASSESSMENT: BI-RADS Category 1: Negative RECOMMENDATION: Routine screening mammogram in 1 year. A lay language report of this examination will be provided to the patient. Michael Rosales M.D. Diagnostic Radiologist [email or web address] SP/Dictated by: Michael Rosales MD @ 01/13/2024 11:27:00 AM (Electronically Signed)
== END 2024-01-13 11:01 | disposition home or self-care (01) ==
LOC: MAMMO 11:01
PROVIDERS: PCP Emergency Medicine; Visit Provider Emergency Medicine
DX: Z12.31 Encounter for screening mammogram for malignant neoplasm of breast (principal)
CPT/HCPCS: 77063; 77067

== ENCOUNTER 2024-02-11 14:45 | Outpatient (CLI) | payer MEDICARE, SELFPAY | END 2024-02-11 14:46 | disposition home or self-care (01) | PROVIDERS: PCP Emergency Medicine; Visit Provider Emergency Medicine | DX: E03.9 Hypothyroidism, unspecified (principal); Z13.21 Encounter for screening for nutritional disorder | CPT/HCPCS: 82607; 84439; 84443 ==

== ENCOUNTER 2024-05-26 11:24 | Outpatient (CLI) | payer MEDICARE, SELFPAY | END 2024-05-26 11:25 | disposition home or self-care (01) | PROVIDERS: PCP Emergency Medicine; Visit Provider Emergency Medicine | DX: E03.9 Hypothyroidism, unspecified (principal); I10 Essential (primary) hypertension; R53.81 Other malaise; R73.03 Prediabetes; F41.9 Anxiety disorder, unspecified; I49.9 Cardiac arrhythmia, unspecified | CPT/HCPCS: 80053; 84439; 84443; 87086; 87186 ==

== ENCOUNTER 2024-07-22 15:18 | Outpatient (CLI) | payer MEDICARE, SELFPAY | END 2024-07-22 15:19 | disposition home or self-care (01) | LOC: LKVREF 15:19 | PROVIDERS: PCP Emergency Medicine; Visit Provider Emergency Medicine | DX: E03.9 Hypothyroidism, unspecified (principal) | CPT/HCPCS: 84443 ==

== ENCOUNTER 2024-09-08 11:46 | Outpatient (CLI) | payer MEDICARE, SELFPAY | END 2024-09-08 11:47 | disposition home or self-care (01) | LOC: LKVREF 11:47 | PROVIDERS: PCP Emergency Medicine; Visit Provider Emergency Medicine | DX: E03.9 Hypothyroidism, unspecified (principal) | CPT/HCPCS: 84443 ==

== ENCOUNTER 2024-12-05 10:35 | Emergency (ER) | payer MEDICARE, SELFPAY ==
[2024-12-05] VITALS (19 sets, daily range): BP systolic 125; BP diastolic 74; PULSE 74–108; RESP 18; TEMP 37.3; O2SAT 95–99; BMI 25.7
--- OUTSIDE RECORDS SUMMARY | 2024-12-05 10:38 | XMS_ITS | Clinical Summary ---
Author Organization [place] Address [address] [place] [id number] Care Team Providers Care Associate Director Of Biostatistics Name Role Phone Marisol Sotelo MD Primary Care Provider [phone]- [phone] Allergies No known active allergies Medications lisinopril (ZESTRIL) 10 MG tablet Take 1 tablet (10 mg) by mouth daily for 30 days 30 tablet 09/20/2023 Active Social History Tobacco Use Types Packs/Day Years Used Date Smoking Tobacco: Never Assessed Adolescent Education Answer Date Record ed Getting School Help Needed Not on file 09/13 Comments No Sex and Gender Information Value Date Recorded Sex Assigned at Female 09/18/2023 9:29 AM CDT Legal Sex Female 4: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 Gender Identity Female 09/18/2023 9:29 AM CDT Sexual Orientation Straight 09/18/2023 9: 29 AM CDT Last Filed Vital Signs Vital Sign Reading Time Taken Comments Blood Pressure 160/91 09/20/2023 2:45 PM CDT Pulse 67 09/20/2023 2:45 PM CDT Temperature 36.8 C (98.2 F) 09/20/2023 12:53 PM CDT Respiratory Rate 18 09/20/2023 12:53 PM CDT Oxygen Saturation 100% 09/20/2023 2:45 PM CDT Inhaled Oxygen Concentration - - Weight 69.1 kg (152 lb 5.4 oz) 09/20/2023 12:53 PM CDT Height 162.6 cm (5' 4) 09/20/2023 12:53 PM CDT Body Mass Index 26.15 09/20/2023 12:53 PM CDT Plan of Treatment Health Maintenance Due Date Last Done Comments ADVANCE CARE PLANNING 1948 ANNUAL REVIEW OF HM ORDERS 1948 DEXA 1948 HEPATITIS C SCREENING 1966 DTAP/TDAP/TD VACCINE (1 - Tdap) 1973 LIPID 1988 ZOSTER VACCINE (1 of 2) 1998 FALL RISK ASSESSMENT 2013 MEDICARE ANNUAL WELLNESS VISIT 2013 RSV VACCINE (1 - 1-dose 75+ series) 07/17/2023 PHQ-2 (once per calendar year) 2024 BMP 09/19/2024 09/20/2023, 09/14/2023 PNEUMOCOCCAL VACCINE 50+ YEARS (2 of 2 - PCV20 or PCV21) 10/20/2024 10/21/2023 COVID-19 VACCINE (1 - 2024-2 6 season) 2024 INFLUENZA VACCINE (#1) 2024 DIABETES SCREENING 09/19/2026 09/20/2023, 09/14/2023, 09/14/2023 HPV VACCINE (No Doses Required) Completed MENINGITIS VACCINE Aged Out No longer eligible based on patient's age to complete this topic Procedures Procedure Name Priority Date/Time Associated Diagnosis Comments BASIC METABOLIC PANEL STAT 09/20/2023 1:55 PM CDT from Last 3 Months or Most Recently Relevant to Health Maintenance Results * (ABNORMAL) Basic metabolic panel (09/20/2023 1:55 PM CDT) Sodium 135 135 - 145 mmol/L 09/20/2023 2:20 PM CDT [facility] Potassium 3.7 3.4 - 5.3 mmol/L 09/20/2023 2:20 PM CDT [facility] Chloride 98 98 - 107 mmol/L 09/20/2023 2:20 PM CDT [facility] Carbon Dioxide (CO2) 25 22 - 29 mmol/L 09/20/2023 2:20 PM [facility] Anion Gap 12 7 - 15 mmol/L 09/20/2023 2:20 PM CDT [facility] Urea Nitrogen 10.5 8.0 - 23.0 mg/dL 09/20/2023 2:20 PM CDT [facility] Creatinine 0.91 0.51 - 0.95 mg/dL 09/20/2023 2:20 PM CDT [facility] GFR Estimate 65 >60 mL/min/1.7 3m2 09/20/2023 2:20 PM CDT [facility] Comment:eGFR calculated usin 2020 CKD-EPI equation. Calcium 9.5 8.8 - 10.4 mg/dL 09/20/2023 2:20 PM CDT [facility] Comment:Reference intervals for this test were updated on 09/09/2023 to reflect our healthy population more accurately. There may be differences in the flagging of prior results with similar values performed with this method. Those prior results can be interpreted in the context of the updated reference intervals. Glucose 111(H) 70 - 99 mg/dL 09/20/2023 2:20 PM CDT [facility] Blood BLOOD SPECIMEN / Unknown Venipuncture / Unknown 09/20/2023 1:55 PM CDT 09/20/2023 2:01 PM CDT Te Fuentes MD LAB - BLOOD ORDERABLES Fi nal Result LABORATORY [facility] [address] [facility] (1st floor, no room number) [place] [address], [facility] from Last 3 Months or Most Recently Relevant to Health Maintenance Insurance [facility] MEDICARE ADVANTAGE [facility] MEDICARE ADVANTAGE Care Teams Associate Director Of Biostatistics Relationship Specialty Start Date End Date Marisol Sotelo MD [facility] [address] [place], [place] [id number] PCP - General Family Medicine 09/14/23
--- OUTSIDE RECORDS SUMMARY | 2024-12-05 10:38 | XMS_ITS | Encounter Summary ---
Author Organization [place] Address [address] [place] [address]. [place] [address] Care Team Providers Care Log Haul Chain Feeder Name Role Phone Marisol Sotelo MD Primary Care Provider [phone]- [phone] Encounter Details Date Type Department Care Team (Late st Contact Info) Description 08/04/2024 MyC Medical Advice Initial Department [facility] [place] Social History Tobacco Use Types Packs/Day Years Used Date Smoking Tobacco: Never Assessed Adolescent Education Answer Date Record ed Getting School Help Needed Not on file 09/13 Comments No Sex and Gender Information Value Date Recorded Sex Assigned at Female 09/18/2023 9:29 AM CDT Legal Sex Female 4:31 AM MANAGER COSMETIC Gender Identity Female 09/18/2023 9:29 AM CDT Sexual Orientation Straight 09/18/2023 9: 29 AM CDT documented as of this encounter Plan of Treatment Not on file documented as of this encounter Visit Diagnoses Not on filedocumented in this encounter Care Teams Log Haul Chain Feeder Relationship Specialty Start Date End Date Marisol Sotelo MD [facility] [address] [place] [address] PCP - General Family Medicine 09/14/23 documented as of this encounter
--- OUTSIDE RECORDS SUMMARY | 2024-12-05 10:38 | XMS_ITS | Encounter Summary ---
Author Organization [place] Address [address] [place] [address]. [place] [address] Care Team Providers Care Cryptologist Name Role Phone Marisol Sotelo MD Primary Care Provider +1- [phone] Encounter Details Date Type Department Care Team (Late st Contact Info) Description 08/04/2024 MyC Medical Advice Initial Department [facility] [place] Social History Tobacco Use Types Packs/Day Years Used Date Smoking Tobacco: Never Assessed Adolescent Education Answer Date Record ed Getting School Help Needed Not on file 09/13 Comments No Sex and Gender Information Value Date Recorded Sex Assigned at Female 09/18/2023 9:29 AM CDT Legal Sex Female 4:31 AM 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
--- NOTE | 2024-12-05 11:15 | ED.WEAKNESS ---
HPI - Weakness General Time Seen by Provider: 11:15 Date Seen: 12/05/24 Chief complaint: Weakness Stated complaint: weakness, Covid + on November 25 Time Seen by Provider: 12/05/24 11:13 Source: patient and RN notes reviewed Mode of arrival: ambulatory Limitations: no limitations History of Present Illness HPI Narrative: This 74-year-old female is coming in with concern of weakness and fatigue status post COVID. She tested positive for COVID on November 25, started Paxlovid on November 26 in did completed. She really did not have much for respiratory symptoms, she had a low-grade temp in the 100? F range and some diarrhea. Her was sick before her, was positive a couple days before she became ill. She is still just really tired, feeling globally weak. Has no pain. She notes she has got diminished appetite, feels a little bubble or gas in the epigastric area after eating. She would not say it is discomfort or pain. She still has her gallbladder. She is not coughing, no chest pain, no pain complaints anywhere. She recently had her levothyroxine adjusted, would like her thyroid tested. She has no ongoing diarrhea, no nausea or vomiting. No urinary symptoms. Related Data Home Medications ?Medication ?Instructions ?Recorded ?Confirmed Filiberto seed PO 01/15/22 09/08/24 diabetic supplies, miscellan. 01/15/22 09/08/24 Previous Rx's ?Medication ?Instructions ?Recorded escitalopram oxalate 10 mg tablet 10 mg PO QDAY #90 tabs 07/22/24 escitalopram oxalate 5 mg tablet 5 mg PO QDAY #90 tabs 09/08/24 lisinopril 10 mg tablet 10 mg PO DAILY #90 tabs 09/08/24 levothyroxine 75 mcg tablet 75 mcg PO QDAY #90 tabs 09/26/24 blood sugar diagnostic (Contour #100 ea 11/22/24 Next Test Strips) nirmatrelvir 300 mg (150 mg See Rx Instructions PO .COMPLEX 11/26/24 x2)-ritonavir 100 mg tablet,dose #30 ea pack (Paxlovid) Blood Glucose Meter #1 ea 12/03/24 Diabetic Test Strips #100 ea 12/03/24 lancets #100 ea 12/03/24 lancing device (lancing device #1 ea 10/10/25 with lancets) Allergies Allergy/AdvReac Type Severity Reaction Status Date / Time metronidazole (From Flagyl) Allergy Unknown Verified 12/05/24 11:08 Review of Systems Status of ROS: Reports: 6 or more systems reviewed and unremarkable except as noted in History and below PFSH [facility] Medical History Encounter for preventive care ?Z00.00 - Encounter for general adult medical examination without abnormal findings (ICD-10) UTI (urinary tract infection) ?N39.0 - Urinary tract infection, site not specified (ICD-10) Vision abnormalities ?H53.9 - Unspecified visual disturbance (ICD-10) Dizziness ?R42 - Dizziness and giddiness (ICD-10) Type 2 diabetes mellitus (09/13/09) ?E11.9 - Type 2 diabetes mellitus without complications (ICD-10) Hypertension ?I10 - Essential (primary) hypertension (ICD-10) Tick bite ?W57.XXXA - Bitten or stung by nonvenomous insect and other nonvenomous arthropods, initial encounter (ICD-10) Malaise ?R53.81 - Other malaise (ICD-10) Coccyx pain ?M53.3 - Sacrococcygeal disorders, not elsewhere classified (ICD-10) Back pain ?M54.9 - Dorsalgia, unspecified (ICD-10) Vomiting ?R11.10 - Vomiting, unspecified (ICD-10) Collagenous colitis ?K52.831 - Collagenous colitis (ICD-10) Sessile serrated polyp of colon ?D12.6 - Benign neoplasm of colon, unspecified (ICD-10) Vaccine counseling ?Z71.85 - Encounter for immunization safety counseling (ICD-10) Pre-diabetes ?R73.03 - Prediabetes (ICD-10) Elevated blood pressure reading ?R03.0 - Elevated blood-pressure reading, without diagnosis of hypertension (ICD-10) History of bone density study ?Z92.89 - Personal history of other medical treatment (ICD-10) Hypothyroidism ?E03.9 - Hypothyroidism, unspecified (ICD-10) Surgical History History of laparoscopy (06/07/08) ?Z98.890 - Other specified postprocedural states (ICD-10) History of carpal tunnel surgery ?Z98.890 - Other specified postprocedural states (ICD-10) History of breast biopsy (09/01/09) ?Z98.890 - Other specified postprocedural states (ICD-10) Family History Mother Coronary artery disease Other Anxiety Social History Narrative: , no children, enjoys gardening, riding stationary bicycle, no tobacco products, rare alcohol. What is your current living situation?: I presently have a place to live Problems where you live: no known problems In the past 12 months, utilities in danger of being shut off: no In past 12 months, lack of transportation kept you from medical appts, meetings, work, or getting things needed for daily living: no In the past 12 mos, have been you worried that your food would run out before you had money to buy more?: never true In the past 12 mos, the food you bought just didn't last and you didn't have money to buy more?: never true Smoking Status: Never smoker Second hand tobacco smoke exposure: No How often do you have a drink containing alcohol: 2-3 times a week How often do you have six or more drinks on one occasion: Never AUDIT-C Alcohol total score: 3 Non-prescribed substance use: denies use How often does anyone, including family, friends and others, physically hurt you: never How often does anyone, including family, friends and others, insult or talk down to you: never How often does anyone, including family, friends and others, threaten you with harm: never How often does anyone, including family, friends and others, scream or curse at you: never Gender Identity: female Exam Const: Vital Signs, click to edit/add: Vital Signs - 24 hr 12/05/24 11:04 12/05/24 11:49 12/05/24 12:00 Temperature 99.2 F Pulse Rate 78 81 Pulse Rate [Right Pulse Oximeter] 108 H Respiratory Rate 18 Blood Pressure [Ri ght Upper Arm] 125/74 Pulse Oximetry 98 95 95 Oxygen Delivery Me thod Room Air 12/05/24 12:15 12/05/24 12:30 12/05/24 12:45 Temperature Pulse Rate 78 82 79 Pulse Rate [Right Pulse Oximeter] Respiratory Rate Blood Pressure [Ri ght Upper Arm] Pulse Oximetry 96 96 99 Oxygen Delivery Me thod 12/05/24 13:00 12/05/24 13:15 12/05/24 13:39 Temperature Pulse Rate 77 74 100 Pulse Rate [Right Pulse Oximeter] Respiratory Rate Blood Pressure [Ri ght Upper Arm] Pulse Oximetry 96 98 98 Oxygen Delivery Me thod 12/05/24 13:45 12/05/24 14:02 12/05/24 14:15 Temperature Pulse Rate 82 94 82 Pulse Rate [Right Pulse Oximeter] Respiratory Rate Blood Pressure [Ri ght Upper Arm] Pulse Oximetry 98 96 97 Oxygen Delivery Me thod 12/05/24 14:30 12/05/24 14:45 12/05/24 15:00 Temperature Pulse Rate 79 81 81 Pulse Rate [Right Pulse Oximeter] Respiratory Rate Blood Pressure [Ri ght Upper Arm] Pulse Oximetry 99 97 99 Oxygen Delivery Me thod 12/05/24 15:15 Temperature Pulse Rate 82 Pulse Rate [Right Pulse Oximeter] Respiratory Rate Blood Pressure [Ri ght Upper Arm] Pulse Oximetry 97 Oxygen Delivery Me thod This 74-year-old female is alert, interactive, no apparent distress. She is seen in exam room 3, speech normal. Sclera clear, face atraumatic. Neck supple, no adenopathy, jugular venous distension. Lungs are clear, good air entry, no wheezing or crackles, no tachypnea, no accessory muscle use. CV regular rate and rhythm, slightly fast, no murmur, normal S1-S2. Abdomen is soft, nontender, nondistended, no organomegaly, no rebound or guarding, no masses. She has no lower extremity edema, was ambulatory into the ED of her own accord. Documenting provider has reviewed patient's vital signs: yes Course Course ED Course: Her changes in appetite and the little distension or gas she feels after eating does make me think of gallbladder pathology, have seen that with COVID at times. We certainly will check her thyroid as she requested. Will have her on pulse oximetry, check a portable chest x-ray to make sure no underlying secondary pneumonia developing. Will get full complement of labs. She is mildly tachycardic, will check a D-dimer. If grossly elevated, will consider doing chest CT imaging. Will be getting kidney and liver functions as well as a white count. Patient is oxygenating well, no pain complaints at this time. Will also do a COVID antigen on her, see if she is still potentially afflicted with COVID. Reevaluation(s) Time of Reevaluation #1: 12:32 Reevaluation #1: Patient's COVID antigen is still positive, thus, still considered to have COVID actively. Her sodium is little low 129, was normal 136 in May. Will give her 500 mL normal saline. Awaiting other labs to complete. Patient is updated. Time of Reevaluation #2: 13:33 Reevaluation #2: Did update patient that you be getting a CT of her chest to rule out pulmonary emboli. Her D-dimer is grossly elevated. Time of Reevaluation #3: 16:03 Reevaluation #3: Have reviewed with patient that her chest CT is not showing any evidence of COVID pneumonia, no pulmonary emboli. She is just still sick with COVID and reviewed with her her with the positive antigen, she is still infectious. She can use further COVID antigen testing to see if she is still shutting the virus. I would say that she should retest 1 she is starting to feel better. This will tell her if she is still actively infectious or not. Vital Signs Vital signs: Initial Vital Signs Temperature 99.2 F 12/05/24 11:04 Temperature Source Temporal Artery Scan 12/05/24 11:04 Pulse Rate 108 H 12/05/24 11:04 Pulse Rhythm Regular 12/05/24 11:04 Pulse Strength 3+ Normal 12/05/24 11:04 Respiratory Rate 18 12/05/24 11:04 Blood Pressure 125/74 12/05/24 11:04 Blood Pressure Mean 91 12/05/24 11:04 Blood Pressure Position Sitting 12/05/24 11:04 Pulse Oximetry 98 12/05/24 11:04 Oxygen Delivery Method Room Air 12/05/24 11:04 Vital Signs Temperature 99.2 F 12/05/24 11:04 Pulse Rate 108 H 12/05/24 11:04 Respiratory Rate 18 12/05/24 11:04 Blood Pressure 125/74 12/05/24 11:04 Pulse Oximetry 98 12/05/24 11:04 Oxygen Delivery Method Room Air 12/05/24 11:04 Temperature 99.2 F 12/05/24 11:04 Pulse Rate 82 12/05/24 15:15 Respiratory Rate 18 12/05/24 11:04 Blood Pressure 125/74 12/05/24 11:04 Pulse Oximetry 97 12/05/24 15:15 Oxygen Delivery Method Room Air 12/05/24 11:04 Medications Administered Medications: Discontinued Medications Generic Name Dose Route Start Last Admin Trade Name Freq PRN Reason Stop Dose Admin Sodium Chloride 500 mls @ 500 mls/hr 12/05/24 12:32 12/05/24 13:21 0.9 % Sodium Chloride 500 Ml IV 12/05/24 13:31 Infused .Q1H ONE Infusion MDM - Weakness Lab Data Attestation: I reviewed the patient's lab results. Labs: Lab Results 12/05/24 Range/Units 11:45 WBC 6.86 (4.50-11.00) K/uL RBC 4.52 (4.00-5.20) m/uL Hgb 14.2 (12.0-16.0) gm/dL Hct 41.3 (33.0-51.0) % MCV 91 (80-100) fL MCH 31 (26-34) pg MCHC 34 (32-36) gm/dL RDW Coeff of Amber 12.6 (11.5-15.5) % Plt Count 190 (140-440) K/uL Neut % (Auto) 73.8 H (42.0-72.0) % Lymph % (Auto) 14.4 L (20-44) % Hutchinson % (Auto) 10.8 (0.0-11.0) % Eos % (Auto) 0.6 (0.0-7.0) % Baso % (Auto) 0.3 (0.0-3.0) % Neut # (Auto) 5.10 (1.7-7.0) K/uL Lymph # (Auto) 1.00 (0.90-2.90) K/uL Hutchinson # (Auto) 0.70 (0.00-0.90) K/UL Eos # (Auto) 0.04 (0.00-0.50) K/uL Baso # (Auto) 0.02 (0.00-0.30) K/uL Abs Immat Gran (auto) 0.01 (0.00-0.30) K/uL Imm/Tot Granulo (auto) 0.1 % D-Dimer Quant (PE/DVT) 5.83 H (0.00-0.50) ug/ml VBG pH 7.403 (7.32-7.43) VBG pCO2 42 (40-50) mmHG VBG pO2 < 30.1 (25-47) mmHG VBG HCO3 26 (21-28) mmol/L Sodium 129 L (135-149) mmol/L Potassium 3.9 (3.6-5.1) mmol/L Chloride 97 (96-114) mmol/L Carbon Dioxide 25 (20-32) mmol/L Anion Gap 7 (7-15) mEq/L BUN 15 (7-30) mg/dL Creatinine 0.8 (0.5-1.5) mg/dL Estimated Creat Clear 41.33 Estimated GFR 76 ml/min Glucose 119 H (60-115) mg/dL Lactate 0.9 (0.5-1.9) mmol/L Calcium 8.9 (8.4-10.6) mg/dL Total Bilirubin 0.7 (0.1-1.5) mg/dL Direct Bilirubin 0.2 (0.0-0.5) mg/dL AST 43 H (12-35) U/L ALT 37 H (4-35) U/L Alkaline Phosphatase 67 (40-150) U/L Troponin I < 0.01 (0.01-0.04) ng/mL C-Reactive Protein < 0.5 L (0.5-1.0) mg/dL NT-Pro-B Natriuret Pep 115 (See Note) pg/mL Total Protein 6.7 (6.0-8.3) g/dL Albumin 4.1 (3.3-5.0) g/dL Lipase 111 (23-300) U/L TSH 5.960 H (0.270-4.200) uIU/mL Free T4 1.47 (0.70-1.85) ng/dL SARS-CoV-2 Ag (Rapid) POSITIVE A (Negative) Imaging Data Chest x-ray: Attestation: I have reviewed the pertinent imaging results. My impression: I see no evidence of any COVID pneumonia, no consolidations suggestive bacterial pneumonia, no fluid overload on my preliminary review, await Radiology over-read. Radiologist's impression: Patient: SELMA DALY Facility:?[facility] Patient ID:?[id number] Site Patient ID:?[id number]. Site :?[id number] Study:?XRay-Chest 1 view-12/05/2024 11:40:55 AM Ordering Physician:Herminio Farr Final Report: Indication: Weakness after COVID Technique: Chest 1 view. Comparison: Chest radiograph 07/22/2021. Findings/Impression: Cardiovascular and mediastinum: Heart size is normal. Unremarkable mediastinum. Lungs and pleural space: Lungs are clear. No pleural effusion or pneumothorax. Bones and soft tissues: No acute findings. Dictated by Kathryn Gutierrez MD @ 12/05/2024 11:59:01 AM (Electronic Signature) ECG Data Attestation: I personally reviewed and interpreted this ECG as follows: (Normal sinus rhythm, 77 beats per minute. No definitive ST segment abnormality, nonspecific T-wave changes.) ECG interpretation date: 12/05/24 Prior ECG tracings: available for review Discharge Plan Discharge Clinical Impression: COVID-19, Weakness Hypothyroid Qualifiers: Hypothyroidism type: unspecified Qualified Code(s): E03.9 - Hypothyroidism, unspecified Patient Disposition: Home, Self-Care Condition: Stable Instructions: COVID-19 (Coronavirus Disease 2019) (ED) Additional Instructions: Your COVID antigen test is positive which would mean that you are still actively infectious with COVID. Hopefully will start to feel better within the next couple days to week. You can retest with the COVID antigen to see if you are still shutting the COVID virus and still caring it. As long as your COVID antigen test is positive, you are considered infectious. I would recommend resting, drink adequate fluids. You may want to get some Pedialyte or Gatorade, your sodium was mildly low here today at 1:29 a.m.. This can be from being sick. Your sodium should really be rechecked within the next 1-2 weeks in clinic, schedule an appointment for follow-up. There was no evidence of any pulmonary emboli or pneumonia on your chest CT today. Your free T4 was normal, your thyroid medicine does not appear to need any adjustment at this time. Follow up in clinic regarding further questions with your thyroid. If you have concerns about worsening status, feel you are getting more ill, have difficulty breathing/shortness of breath, do recommend re-evaluation. Activity Level: Activity as Tolerated Prescriptions: No Action Filiberto seed PO Rx Instructions: 1 tablespoon (DME) diabetic supplies, miscellan. Misc See Rx Instructions .Route Rx Instructions: As directed escitalopram oxalate 10 mg tablet 10 mg PO QDAY Qty: 90 3RF escitalopram oxalate 5 mg tablet 5 mg PO QDAY Qty: 90 0RF lisinopril 10 mg tablet 10 mg PO DAILY Qty: 90 3RF levothyroxine 75 mcg tablet 75 mcg PO QDAY Qty: 90 0RF (DME) Contour Next Test Strips Strip See Rx Instructions .ROUTE .COMPLEX Qty: 100 0RF Dose Instruction: TEST ONCE DAILY NEEDED Rx Instructions: TEST ONCE DAILY NEEDED Paxlovid 300 mg (150 mg x 2)-100 mg tablets,dose pack See Rx Instructions PO .COMPLEX Qty: 30 0RF Rx Instructions: take TWO 150 mg tablets of nirmatrelvir with ONE 100 mg tablet of ritonavir twice daily for 5 days PO (DME) Diabetic Test Strips [facility] [place] See Rx Instructions .MEDSUPPLY Qty: 100 3RF Rx Instructions: once daily for diabetes (DME) Blood Glucose Meter Mis See Rx Instructions .Route Qty: 1 0RF Rx Instructions: As directed (DME) lancets [facility] [place] See Rx Instructions .MEDSUPPLY Qty: 100 3RF Rx Instructions: once daily (DME) lancing device [lancing device with lancets] Mis See Rx Instructions .MEDSUPPLY Qty: 1 3RF Rx Instructions: As directed- once daily for diabetes Follow Up/Referrals: Ivania Henson PA-C [Primary Care Provider, Family Practice] Stand Alone Forms: [facility] Info Instructions Procedures ABG Interpretation ABG Results: 12/05/24 11:45 VBG pH 7.403 VBG pCO2 42 VBG pO2 < 30.1 VBG HCO3 26
--- NOTE | 2024-12-05 11:24 | CRLHL7_ITS ---
For Patients: As a result of the Century Cures Act, medical imaging exams and procedure reports are released immediately into your electronic medical record. You may view this report before your referring provider. If you have questions, please contact your health care provider. Indication: Weakness after COVID Technique: Chest 1 view. Comparison: Chest radiograph 07/22/2021. Findings/Impression: Cardiovascular and mediastinum: Heart size is normal. Unremarkable mediastinum. Lungs and pleural space: Lungs are clear. No pleural effusion or pneumothorax. Bones and soft tissues: No acute findings. Dictated by Kathryn Gutierrez MD @ 12/05/2024 11:59:01 AM (Electronically Signed)
[2024-12-05 11:51] LABS: HCO3 VBG 26 mmol/L (21-28); Hematocrit* 41.3 % (33.0-51.0); Hemoglobin* 14.2 gm/dL (12.0-16.0); Immature Granulocytes Abs Auto 0.01 K/uL (0.00-0.30); Immature Granulocytes Pct Auto 0.1 %; Lactate* 0.9 mmol/L (0.5-1.9); Mean Corpuscular HGB Conc 34 gm/dL (32-36); Mean Corpuscular Hemoglobin 31 pg (26-34); Mean Corpuscular Volume 91 fL (80-100); PCO2 VBG 42 mmHG (40-50); PO2 VBG < 30.1 mmHG (25-47); RDW Coefficient of Variation % 12.6 % (11.5-15.5); Red Blood Count* 4.52 m/uL (4.00-5.20); White Blood Count* 6.86 K/uL (4.50-11.00); pH VBG 7.403 (7.32-7.43)
[2024-12-05 11:58] LABS: Lymphocytes Absolute Auto 1.00 K/uL (0.90-2.90); Slide Review Reflex No
[2024-12-05 12:14] LABS: SARS Antigen* POSITIVE (Negative)
[2024-12-05 12:20] LABS: Albumin* 4.1 g/dL (3.3-5.0); Chloride* 97 mmol/L (96-114)
[2024-12-05 12:21] LABS: Potassium* 3.9 mmol/L (3.6-5.1); Sodium* 129 mmol/L (135-149)
[2024-12-05 12:23] LABS: Blood Urea Nitrogen* 15 mg/dL (7-30); Creatinine* 0.8 mg/dL (0.5-1.5); Est. Creatinine Clearance* 41.33; Estimated Glomerular Filt Rate 76 ml/min
[2024-12-05 12:24] LABS: Alanine Aminotransferase* 37 U/L (4-35); Alkaline Phosphatase* 67 U/L (40-150); Anion Gap 7 mEq/L (7-15); Aspartate Amino Transferase* 43 U/L (12-35); Bilirubin Direct* 0.2 mg/dL (0.0-0.5); Bilirubin Total* 0.7 mg/dL (0.1-1.5); Calcium* 8.9 mg/dL (8.4-10.6); Carbon Dioxide* 25 mmol/L (20-32); Glucose* 119 mg/dL (60-115); Total Protein* 6.7 g/dL (6.0-8.3)
[2024-12-05 12:35] LABS: NT Pro B Type NatriureticPept* 115 pg/mL (See Note)
[2024-12-05 12:37] LABS: D Dimer Quantitative* 5.83 ug/ml (0.00-0.50)
[2024-12-05] MEDS: 0.9 % SODIUM CHLORIDE 500 ML 500 ML IV (12:40)
--- NOTE | 2024-12-05 12:44 | CRLHL7_ITS ---
For Patients: As a result of the Century Cures Act, medical imaging exams and procedure reports are released immediately into your electronic medical record. You may view this report before your referring provider. If you have questions, please contact your health care provider. INDICATION: High D-dimer. COVID weakness TECHNIQUE: CT chest was acquired with 95 cc Isovue 370 IV contrast. Coronal and MIP reconstructions were performed. COMPARISON: None. FINDINGS: Lungs and pleura: No suspicious nodules or infiltrates. No pleural effusions, pleural thickening, or pneumothorax. Mild basilar atelectasis. Heart and vasculature: Heart size is normal. Thoracic aorta and pulmonary artery are normal in caliber. Lymph nodes/mediastinum: No mediastinal, hilar, or axillary adenopathy. Chest wall: No masses. Upper abdomen: Moderate hiatal hernia. Bones: Unremarkable for age. IMPRESSION: 1. No pulmonary emboli. No acute pulmonary findings Please note that all CT scans at this facility use dose modulation, iterative reconstruction, and/or weight-based dosing when appropriate to reduce radiation dose to as low as reasonably achievable. Dictated by Steff Huang MD @ 12/05/2024 3:53:16 PM (Electronically Signed)
[2024-12-05 12:46] LABS: TSH With Reflex to FT4* 5.960 uIU/mL (0.270-4.200)
[2024-12-05 13:14] LABS: Free T4 Free Thyroxine* 1.47 ng/dL (0.70-1.85)
== END 2024-12-05 16:19 | disposition home or self-care (01) ==
PROVIDERS: Emergency Provider Family Medicine; PCP Physician Assistant Medical
DX: U07.1 COVID-19 (principal); E03.9 Hypothyroidism, unspecified
CPT/HCPCS: 36415; 71045; 71275; 80053; 82248; 82803; 83605; 83690; 83880; 84439; 84443; 84484; 85025; 85379; 86140; 87426; 93005; 94761; 96360; 99285; J7030; Q9967

== ENCOUNTER 2024-12-08 11:58 | Outpatient (CLI) | payer MEDICARE, SELFPAY | END 2024-12-08 11:59 | disposition home or self-care (01) | LOC: LKVREF 11:59 | PROVIDERS: PCP Physician Assistant Medical; Visit Provider Physician Assistant Medical | DX: E87.1 Hypo-osmolality and hyponatremia (principal); E03.9 Hypothyroidism, unspecified | CPT/HCPCS: 80053; 84443 ==

== ENCOUNTER 2025-01-05 13:23 | Outpatient (CLI) | payer MEDICARE, SELFPAY ==
--- NOTE | 2025-01-05 14:00 | CRLHL7_ITS ---
For Patients: As a result of the Century Cures Act, medical imaging exams and procedure reports are released immediately into your electronic medical record. You may view this report before your referring provider. If you have questions, please contact your health care provider. XR DXA Bone Mineral Density (BMD) Reason for exam: Screening for osteoporosis. Current height (inches): 65.0 Weight (lbs.): 150.0 Menopause age: 46 Ethnicity: White 1. Have you had a previous hip or vertebral fracture? No. 2. Have you had any fractures during your adult life which did not result from significant trauma (e.g., auto accident)? No. 3. Did either of your parents have a hip fracture? Yes. 4. Do you smoke? No. 5. Have you ever taken Glucocorticoids? No. 6. Do you have rheumatoid arthritis? No. 7. Do you have secondary osteoporosis? No. 8. Do you drink 3 or more alcoholic drinks per day? No. 9. Are you being treated for osteoporosis? No. 10. Have you ever taken any of the following medications: Actonel, Evista, Fosamax, Miacalcin, Reclast, Boniva, Forteo, HRT (i.e., estrogen/hormone therapy), Protelos, Prolia, Vitamin D, Calcium, other ??? please specify. ANSWER: Yes; vitamin D and calcium. 11. Do you have any of the following medical conditions: Anorexia or bulimia, asthma or emphysema, end stage renal disease, hyperparathyroidism, any seizure disorders, cancer, inflammatory bowel diseases, hysterectomy, other ??? please specify. ANSWER: Other; hypothyroidism. 12. What was your maximum height (inches)? 65. 13. Do you perform weightbearing exercise regularly? No. 14. Do you regularly consume dairy products? No. 15. Do you drink caffeinated beverages? Yes. 16. At what age did your period start? 10. 17. Are you premenopausal? No. 18. How many full-term pregnancies have you had? 0. 19. Have you ever missed your period for more than 6 months in a row (not including or menopause)? No. TECHNIQUE: Bone mineral density study was performed using the iXpert. FINDINGS: The results of the study expressed as bone mineral density (BMD) are as follows: Lumbar Spine L1 to L3: BMD: 1.083 g/cm2. T-score: 0.6. Z-score: 3.0. Neck Left: BMD: 0.656 g/cm2. T-score: -1.7. Z-score: 0.4. Right: BMD: 0.707 g/cm2. T-score: -1.3. Z-score: 0.9. Total Left: BMD: 0.889 g/cm2. T-score: -0.4. Z-score: 1.4. Right: BMD: 0.927 g/cm2. T-score: -0.1. Z-score: 1.7. IMPRESSION: Osteopenia. COMPARISON: Compared with scan of 03/21/2021, the bone mineral density has decreased by 3.7% at the spine and decreased by 1.6% at the hip. *Comparison exams done prior to 07/2019 were performed on different unit, [email or web address] FRAX 10-year Fracture Risk Major Osteoporotic Fracture: 23% Hip Fracture: 13% Reported Risk Factors: [place] () Neck BMD = 0.656, BMI = 25.0, parental fracture. MICHAEL GRANADOS M.D. Diagnostic Radiologist [email or web address] Transcribed: 2:[address]/Dictated by: Michael Granados MD @ 01/06/2025 8:09:00 AM (Electronically Signed)
== END 2025-01-05 13:24 | disposition home or self-care (01) ==
LOC: RAD 13:24
PROVIDERS: PCP Physician Assistant Medical; Visit Provider Physician Assistant Medical
DX: R79.89 Other specified abnormal findings of blood chemistry (principal); R53.83 Other fatigue
CPT/HCPCS: 77080